=== PATIENT | female | born 1945 | race Two or more races ===

== ENCOUNTER 2017-01-28 21:34 | Inpatient (IN) | payer MEDICARE, BC ==
[~2017-01-28] VITALS: Ht 157.5 cm; Wt 64.6 kg
[2017-01-28 22:38] LABS: Basophils # (auto) 0 uL; Basophils % (auto) 0.3 % (0.0-2.0); CONDITION Y; Eosinophils # (auto) 0.1 uL; Eosinophils % (auto) 0.9 % (0.0-7.0); Hemoglobin 12.3 g/dL (12.2-16.2); Lymphocytes # (auto) 1.7 uL; Lymphocytes % (auto) 13.3 % (10.0-50.0); Mean Corpuscular Hgb Conc. 34.2 g/dL (32.0-36.0); Mean Corpuscular Volume 87.8 fL (80.0-100.0); Mean Platelet Volume 7.4 fL (7.4-10.4); Monocytes # (auto) 0.5 uL; Monocytes % (auto) 3.4 % (0.0-12.0); Neutrophils # (auto) 10.7 uL; Neutrophils % (auto) 82.1 % (37.0-80.0); Platelet Count (auto) 388 10^3/uL (140-450); Red Cell Distribution Width 15.1 % (11.6-16.0); White Blood Cell 13.1 10^3/uL (4.4-10.8)
[2017-01-28 22:52] LABS: Albumin 3.5 g/dL (3.4-5.0); Calcium 8.1 mg/dL (8.5-10.1); Potassium 3.3 mmol/L (3.5-5.1)
[2017-01-28 22:57] LABS: Bilirubin, Total 0.3 mg/dL (0.2-1.0)
[2017-01-28 23:41] LABS: BUN/Creatinine Ratio 16.6
[2017-01-29] MEDS ORDERED: ONDANSETRON HCL 4 MG/2 ML VIAL IV ONE (01:45)
[2017-01-29] MEDS ORDERED: HYDROmorphone HCL 2 MG/ML VL IV ONE (01:45)
[2017-01-29] MEDS: SODIUM CHLORIDE 0.9% 1,000 ML IV SCH ×2 (02:33→19:30)
[2017-01-29] MEDS ORDERED: DEXTROSE (50%) 50ML SYRG IV PRN (02:45)
[2017-01-29] MEDS ORDERED: POTASSIUM CHL 20 Meq TABLET PO ONE (02:45)
[2017-01-29] MEDS ORDERED: MORPHINE SULF INJ 2 MG/ML SYRINGE 1ML IV PRN (02:45)
[2017-01-29] MEDS ORDERED: DOCUSATE SOD 100 MG CAP PO PRN (02:45)
[2017-01-29] MEDS: ACCU-CHEK COMFORT CURVE STRIP VI SCH ×4 (06:00→23:35)
[2017-01-29] MEDS: InsuLIN REG 1unit/0.01ml Soln (100units/ml) SC SCH ×4 (06:00→23:37)
[2017-01-29] MEDS ORDERED: MORPHINE SULFATE 4 MG/ML SYRG ONE (08:27)
[2017-01-29] MEDS: MORPHINE SULFATE 4 MG/ML SYRG IV PRN ×4 (08:40→22:41)
[2017-01-29] MEDS: ONDANSETRON HCL 4 MG/2 ML VIAL IV PRN ×3 (08:40→18:32)
[2017-01-29] MEDS: amLODIPine BESYLATE 5 MG TAB PO SCH (10:23)
[2017-01-29] MEDS: METOPROLOL TARTRATE 50 MG TAB PO SCH ×2 (10:23→22:33)
[2017-01-29] MEDS: GEMFIBROZIL 600 MG TAB PO SCH ×2 (10:23→22:32)
[2017-01-29] MEDS: FAMOTIDINE 20 MG TAB PO SCH ×2 (10:24→22:33)
[2017-01-29] MEDS: ENOXAPARIN SOD 40 MG/0.4 ML SYRINGE SC SCH (10:24)
[2017-01-29] MEDS ORDERED: THIAMINE INJ 100 MG, MULTIPLE VITAMIN 10 ML, FOLIC ACID 1 MG, MAGNESIUM SULF SDV 50% 8 ... IV SCH ×5 (12:15)
[2017-01-29] MEDS ORDERED: ALUM & MAG HYDROX-SIMETH LIQ(MAALOX) 30 ML PO PRN (12:15)
[2017-01-29] MEDS ORDERED: chlordiazePOXIDE HCL 25 MG CAP PO PRN (12:15)
[2017-01-29] MEDS ORDERED: cloNIDine HCL 0.1 MG TAB PO PRN (12:15)
[2017-01-29 13:45] LABS: INR 0.94 (0.9-1.15); Prothrombin Time 10.2 sec (9.37-12.3)
[2017-01-29 20:41] LABS: Urine Bilirubin Negative (Negative); Urine Blood 1+ /uL (Negative); Urine Color Yellow (Yellow); Urine Glucose Normal (Normal); Urine Ketone 1+ (Negative); Urine Mucus FEW (None Seen); Urine Nitrite Negative (Negative); Urine RBC 22 /hpf (0 - 4); Urine Squamous Epithelial Cell FEW /hpf (<5); Urine Urobilinogen Normal (Negative)
[2017-01-29 22:30] VITALS: BP 156/82
[2017-01-29] MEDS ORDERED: GLIP2.5T28 PO (23:27)
[2017-01-29] MEDS ORDERED: METF-370 PO (23:27)
[2017-01-29] MEDS ORDERED: AML5T PO (23:27)
[2017-01-29] MEDS ORDERED: LISI-275 PO (23:27)
[2017-01-29] MEDS ORDERED: METO-169 PO (23:27)
[2017-01-29] MEDS: TEMAZEPAM 15 MG CAP PO PRN (23:37)
[2017-01-30] MEDS: MORPHINE SULFATE 4 MG/ML SYRG IV PRN ×5 (03:32→21:08)
[2017-01-30 04:30] VITALS: BP 145/67
[2017-01-30] MEDS: ACCU-CHEK COMFORT CURVE STRIP VI SCH ×3 (06:02→17:58)
[2017-01-30] MEDS: InsuLIN REG 1unit/0.01ml Soln (100units/ml) SC SCH ×3 (06:03→17:59)
[2017-01-30 06:15] LABS: Basophils # (auto) 0 uL; Basophils % (auto) 0.3 % (0.0-2.0); CONDITION Y; Eosinophils # (auto) 0 uL; Eosinophils % (auto) 0.6 % (0.0-7.0); Hematocrit 34.1 % (36.0-46.0); Hemoglobin 11.8 g/dL (12.2-16.2); Lymphocytes # (auto) 1.3 uL; Lymphocytes % (auto) 15.5 % (10.0-50.0); Mean Corpuscular Hemoglobin 30.4 pg (28.0-32.0); Mean Corpuscular Hgb Conc. 34.7 g/dL (32.0-36.0); Mean Corpuscular Volume 87.7 fL (80.0-100.0); Mean Platelet Volume 7.3 fL (7.4-10.4); Monocytes # (auto) 0.8 uL; Monocytes % (auto) 9.9 % (0.0-12.0); Neutrophils # (auto) 6.2 uL; Neutrophils % (auto) 73.7 % (37.0-80.0); Platelet Count (auto) 316 10^3/uL (140-450); Red Cell Distribution Width 14.8 % (11.6-16.0); White Blood Cell 8.4 10^3/uL (4.4-10.8)
[2017-01-30 06:46] LABS: Albumin 3.1 g/dL (3.4-5.0); BUN/Creatinine Ratio 15.6; Calcium 8.2 mg/dL (8.5-10.1); Potassium 4.1 mmol/L (3.5-5.1)
[2017-01-30 06:57] LABS: Bilirubin, Total 0.8 mg/dL (0.2-1.0); Total Protein 6.8 g/dL (6.4-8.2)
[2017-01-30 09:00] VITALS: BP 144/85
[2017-01-30] MEDS: FAMOTIDINE 20 MG TAB PO SCH ×2 (10:00→22:10)
[2017-01-30] MEDS: GEMFIBROZIL 600 MG TAB PO SCH ×2 (10:33→22:10)
[2017-01-30] MEDS: METOPROLOL TARTRATE 50 MG TAB PO SCH ×2 (10:34→22:10)
[2017-01-30] MEDS: amLODIPine BESYLATE 5 MG TAB PO SCH (10:35)
[2017-01-30] MEDS: ENOXAPARIN SOD 40 MG/0.4 ML SYRINGE SC SCH (10:37)
[2017-01-30] MEDS: ACETAMINOPHEN 325 MG TAB PO PRN (10:38)
[2017-01-30] MEDS: SODIUM CHLORIDE 0.9% 1,000 ML IV SCH (12:20)
[2017-01-30 13:00] VITALS: BP 159/68
[2017-01-30 16:40] VITALS: BP 139/66
[2017-01-30 21:53] VITALS: BP 150/76
[2017-01-31] MEDS: InsuLIN REG 1unit/0.01ml Soln (100units/ml) SC SCH ×4 (00:14→18:00)
[2017-01-31] MEDS: ACCU-CHEK COMFORT CURVE STRIP VI SCH ×4 (00:14→18:00)
[2017-01-31] MEDS: ACETAMINOPHEN 325 MG TAB PO PRN (00:15)
[2017-01-31] MEDS: MORPHINE SULFATE 4 MG/ML SYRG IV PRN ×3 (01:24→22:02)
[2017-01-31 05:00] VITALS: BP 127/74
[2017-01-31] MEDS: SODIUM CHLORIDE 0.9% 1,000 ML IV SCH ×2 (05:49→21:13)
[2017-01-31 07:08] LABS: Basophils # (auto) 0 uL; Basophils % (auto) 0.1 % (0.0-2.0); Eosinophils # (auto) 0.1 uL; Eosinophils % (auto) 1.1 % (0.0-7.0); Hematocrit 32.3 % (36.0-46.0); Lymphocytes # (auto) 1.4 uL; Lymphocytes % (auto) 16.9 % (10.0-50.0); Mean Corpuscular Hemoglobin 30.1 pg (28.0-32.0); Mean Corpuscular Hgb Conc. 34.2 g/dL (32.0-36.0); Mean Platelet Volume 7.8 fL (7.4-10.4); Monocytes # (auto) 0.7 uL; Monocytes % (auto) 8.7 % (0.0-12.0); Neutrophils % (auto) 73.2 % (37.0-80.0); Platelet Count (auto) 231 10^3/uL (140-450); Red Cell Distribution Width 13.1 % (11.6-16.0); White Blood Cell 8.2 10^3/uL (4.4-10.8)
[2017-01-31 07:17] LABS: BUN/Creatinine Ratio 20.8; Calcium 8.5 mg/dL (8.5-10.1); Potassium 3.7 mmol/L (3.5-5.1)
[2017-01-31 09:00] VITALS: BP 135/69
[2017-01-31] MEDS: METOPROLOL TARTRATE 50 MG TAB PO SCH ×2 (09:04→22:02)
[2017-01-31] MEDS: FAMOTIDINE 20 MG TAB PO SCH ×2 (10:00→22:04)
[2017-01-31] MEDS: GEMFIBROZIL 600 MG TAB PO SCH ×2 (10:00→22:03)
[2017-01-31] MEDS: ENOXAPARIN SOD 40 MG/0.4 ML SYRINGE SC SCH (10:00)
[2017-01-31] MEDS: amLODIPine BESYLATE 5 MG TAB PO SCH (10:00)
[2017-01-31] MEDS ORDERED: CLINDAMYCIN 600MG IV 50 ML IV ONE (10:07)
[2017-01-31] MEDS ORDERED: fentaNYL CITRATE 100 MCG/2 ML VL ONE (10:20)
[2017-01-31] MEDS ORDERED: MEPERIDINE HCL (50 MG/ML) 1 ML VIAL ONE (10:21)
[2017-01-31] MEDS ORDERED: MIDAZOLAM HCL 1MG/1ML-2 ML VIAL ONE (10:21)
[2017-01-31] MEDS ORDERED: ETOMIDATE (2MG/ML) 20ML VIAL IV ONE (10:26)
[2017-01-31] MEDS ORDERED: PROPOFOL 10 MG/ML 20 ML IV ONE (10:54)
[2017-01-31] MEDS ORDERED: DEXAMETHASONE SOD PHOS 10MG/1ML VIAL INJ ONE (10:54)
[2017-01-31] MEDS ORDERED: ePHEDrine SULFATE 50 MG/ML AMP IV PRN (11:00)
[2017-01-31] MEDS ORDERED: ACCU-CHEK COMFORT CURVE STRIP VI ONE (11:00)
[2017-01-31] MEDS ORDERED: ONDANSETRON HCL 4 MG/2 ML VIAL IV ONE (11:00)
[2017-01-31] MEDS ORDERED: MORPHINE SULF INJ 2 MG/ML SYRINGE 1ML IV PRN (11:00)
[2017-01-31] MEDS ORDERED: MIDAZOLAM HCL 1MG/1ML-2 ML VIAL IV PRN (11:00)
[2017-01-31] MEDS ORDERED: LABETALOL HCL 5 MG/ML 4ML SYRINGE IV PRN (11:00)
[2017-01-31] MEDS ORDERED: HYDROmorphone HCL 2 MG/ML VL IV PRN (11:00)
[2017-01-31] MEDS ORDERED: KETOROLAC TROMETH 30 MG/ML 1ML VIAL IV ONE (11:00)
[2017-01-31] MEDS ORDERED: SUCCINYLCHOLINE CHLORIDE 20 MG/ML 10ML VIAL IV ONE (11:12)
[2017-01-31] MEDS ORDERED: GLIP-115 PO (16:16)
[2017-01-31] MEDS ORDERED: LISI40TA PO (16:16)
[2017-01-31] MEDS ORDERED: METF-370 PO (16:16)
[2017-01-31] MEDS ORDERED: METO-159 PO (16:16)
[2017-01-31] MEDS ORDERED: GEMF600T3 PO (16:16)
[2017-01-31 17:13] VITALS: BP 151/69
[2017-01-31] MEDS ORDERED: MULTIPLE VITAMIN TAB PO ONE (20:00)
[2017-01-31] MEDS ORDERED: THIAMINE HCL 100 MG TAB PO ONE (20:00)
[2017-01-31] MEDS ORDERED: FOLIC ACID 1 MG TAB PO ONE (20:00)
[2017-01-31 22:00] VITALS: BP 150/81
[2017-02-01] MEDS: ACCU-CHEK COMFORT CURVE STRIP VI SCH ×5 (00:36→23:27)
[2017-02-01] MEDS: InsuLIN REG 1unit/0.01ml Soln (100units/ml) SC SCH ×5 (00:37→23:27)
[2017-02-01] MEDS: ACETAMINOPHEN 325 MG TAB PO PRN (00:38)
[2017-02-01] MEDS: MORPHINE SULFATE 4 MG/ML SYRG IV PRN ×2 (03:28→11:20)
[2017-02-01 05:00] VITALS: BP 157/75
[2017-02-01 06:15] LABS: Basophils # (auto) 0 uL; CONDITION Y; Eosinophils # (auto) 0 uL; Hematocrit 29.1 % (36.0-46.0); Hemoglobin 10.1 g/dL (12.2-16.2); Lymphocytes # (auto) 0.9 uL; Lymphocytes % (auto) 9.8 % (10.0-50.0); Mean Corpuscular Hemoglobin 30.4 pg (28.0-32.0); Mean Corpuscular Hgb Conc. 34.7 g/dL (32.0-36.0); Mean Corpuscular Volume 87.6 fL (80.0-100.0); Mean Platelet Volume 7.9 fL (7.4-10.4); Monocytes # (auto) 0.9 uL; Monocytes % (auto) 9.8 % (0.0-12.0); Neutrophils # (auto) 7.3 uL; Neutrophils % (auto) 80.4 % (37.0-80.0); Platelet Count (auto) 295 10^3/uL (140-450); Red Cell Distribution Width 14.3 % (11.6-16.0); White Blood Cell 9.1 10^3/uL (4.4-10.8)
[2017-02-01 06:31] LABS: BUN/Creatinine Ratio 19.6; Calcium 8.5 mg/dL (8.5-10.1); Magnesium 2.1 mg/dL (1.6-2.6); Phosphorus 2.1 mg/dL (2.5-4.90); Potassium 3.7 mmol/L (3.5-5.1)
[2017-02-01 09:34] VITALS: BP 144/69
[2017-02-01] MEDS: FOLIC ACID 1 MG TAB PO SCH (09:38)
[2017-02-01] MEDS: ENOXAPARIN SOD 40 MG/0.4 ML SYRINGE SC SCH (09:38)
[2017-02-01] MEDS: GEMFIBROZIL 600 MG TAB PO SCH ×2 (09:38→21:41)
[2017-02-01] MEDS: THIAMINE HCL 100 MG TAB PO SCH (09:39)
[2017-02-01] MEDS: MULTIPLE VITAMIN TAB PO SCH (09:40)
[2017-02-01] MEDS: METOPROLOL TARTRATE 50 MG TAB PO SCH ×2 (09:40→21:42)
[2017-02-01] MEDS: FAMOTIDINE 20 MG TAB PO SCH ×2 (09:40→21:42)
[2017-02-01] MEDS: amLODIPine BESYLATE 5 MG TAB PO SCH (09:40)
[2017-02-01] MEDS ORDERED: MORPHINE SULF INJ 2 MG/ML SYRINGE 1ML IV ONE (11:45)
[2017-02-01 12:58] VITALS: BP 144/72
[2017-02-01 17:00] VITALS: BP 151/84
[2017-02-01] MEDS: SODIUM CHLORIDE 0.9% 1,000 ML IV SCH (17:04)
[2017-02-01 22:00] VITALS: BP 150/85
[2017-02-02] MEDS: TEMAZEPAM 15 MG CAP PO PRN (01:12)
[2017-02-02] MEDS: MORPHINE SULFATE 4 MG/ML SYRG IV PRN ×2 (04:38→10:09)
[2017-02-02 05:00] VITALS: BP 136/83
[2017-02-02] MEDS: ACCU-CHEK COMFORT CURVE STRIP VI SCH ×3 (05:41→17:44)
[2017-02-02] MEDS: InsuLIN REG 1unit/0.01ml Soln (100units/ml) SC SCH ×3 (05:42→17:44)
[2017-02-02] MEDS: SODIUM CHLORIDE 0.9% 1,000 ML IV SCH (05:43)
[2017-02-02 07:12] LABS: Basophils # (auto) 0 uL; Basophils % (auto) 0.1 % (0.0-2.0); CONDITION Y; Eosinophils # (auto) 0.1 uL; Eosinophils % (auto) 1.5 % (0.0-7.0); Hematocrit 30.3 % (36.0-46.0); Hemoglobin 10.6 g/dL (12.2-16.2); Lymphocytes % (auto) 17.6 % (10.0-50.0); Mean Corpuscular Hemoglobin 30.5 pg (28.0-32.0); Mean Corpuscular Hgb Conc. 34.9 g/dL (32.0-36.0); Mean Corpuscular Volume 87.4 fL (80.0-100.0); Mean Platelet Volume 7.7 fL (7.4-10.4); Monocytes # (auto) 0.7 uL; Monocytes % (auto) 11.5 % (0.0-12.0); Neutrophils # (auto) 4.1 uL; Neutrophils % (auto) 69.3 % (37.0-80.0); Platelet Count (auto) 313 10^3/uL (140-450); Red Cell Distribution Width 14.4 % (11.6-16.0); White Blood Cell 5.9 10^3/uL (4.4-10.8)
[2017-02-02 07:51] LABS: BUN/Creatinine Ratio 31.8; Calcium 8.3 mg/dL (8.5-10.1); Phosphorus 2.8 mg/dL (2.5-4.90); Potassium 3.3 mmol/L (3.5-5.1)
[2017-02-02 08:50] VITALS: BP 142/79
[2017-02-02] MEDS: MULTIPLE VITAMIN TAB PO SCH (09:43)
[2017-02-02] MEDS: FOLIC ACID 1 MG TAB PO SCH (09:43)
[2017-02-02] MEDS: ENOXAPARIN SOD 40 MG/0.4 ML SYRINGE SC SCH (09:43)
[2017-02-02] MEDS: THIAMINE HCL 100 MG TAB PO SCH (09:45)
[2017-02-02] MEDS: GEMFIBROZIL 600 MG TAB PO SCH (09:45)
[2017-02-02] MEDS: METOPROLOL TARTRATE 50 MG TAB PO SCH (09:48)
[2017-02-02] MEDS: amLODIPine BESYLATE 5 MG TAB PO SCH (09:48)
[2017-02-02] MEDS: FAMOTIDINE 20 MG TAB PO SCH (09:49)
[2017-02-02] MEDS ORDERED: NITR-48 PO (14:49)
[2017-02-02] MEDS ORDERED: HYDR-4663 PO (14:49)
[2017-02-02] MEDS ORDERED: POTASSIUM CHL 20 Meq TABLET PO ONE (15:00)
== END 2017-02-02 18:50 | DRG 480 ==
LOC: EDBD 21:34 → ER 21:38 → OVERFLOW 21:39 → CENTRAL 01-29 21:55 → EAST 02-02 00:05
PROVIDERS: ADMIT Nurse Practitioner; ATTEND Nurse Practitioner Acute Care
PROC: 0QS636Z Reposition Right Upper Femur with Intramedullary Internal Fixation Device, Percutaneous Approach (ICD-10-PCS; principal; 2017-01-31 10:26)
DX: S72.141A Displaced intertrochanteric fracture of right femur, initial encounter for closed fracture (principal); G93.40 Encephalopathy, unspecified; N39.0 Urinary tract infection, site not specified; I10 Essential (primary) hypertension; E87.6 Hypokalemia; E86.0 Dehydration; F10.129 Alcohol abuse with intoxication, unspecified; E11.65 Type 2 diabetes mellitus with hyperglycemia; W01.0XXA Fall on same level from slipping, tripping and stumbling without subsequent striking against object, initial encounter; Y93.01 Activity, walking, marching and hiking; E78.5 Hyperlipidemia, unspecified; B96.20 Unspecified Escherichia coli [E. coli] as the cause of diseases classified elsewhere; I73.9 Peripheral vascular disease, unspecified; Y90.9 Presence of alcohol in blood, level not specified; Z88.5 Allergy status to narcotic agent; Z88.0 Allergy status to penicillin; Z82.49 Family history of ischemic heart disease and other diseases of the circulatory system; Y92.090 Kitchen in other non-institutional residence as the place of occurrence of the external cause; Y99.8 Other external cause status
CPT/HCPCS: 36415; 70450; 71010; 73502; 76000; 80048; 80053; 80320; 81001; 82962; 83036; 83735; 84100; 85025; 85610; 87086; 87088; 87186; 93005; 96365; 96367; 96374; 96375; A4565; C1713; J0330; J1100; J1815; J2250; J2405; J2704; J3490

== ENCOUNTER → 2020-08-13 | Outpatient (CLI) | payer MEDICARE, OTHER ==
[~2020-08-13] MED LIST: AML5T PO; GEMF600T7 PO; GLIP5TAB12 PO; HYDR-4833 PO; LISI40TA11 PO; METF-370 PO; METO-159 PO; NITR-87 PO
[2020-08-13 13:27] LABS: Calcium 8.4 mg/dL (8.5-10.1); Potassium 4.4 mmol/L (3.5-5.1)
[2020-08-13 13:31] LABS: Albumin 3.4 g/dL (3.4-5.0); Bilirubin, Total 0.3 mg/dL (0.2-1.0); CRP High Sensitivity 0.26 mg/dL (< 0.3); Total Protein 7.4 g/dL (6.4-8.2); Uric Acid 7.5 mg/dL (2.6-6.0)
== END | disposition home or self-care (01) ==
LOC: LAB 11:49
PROVIDERS: ATTEND Podiatrist
DX: M10.071 Idiopathic gout, right ankle and foot (principal)
CPT/HCPCS: 36415; 80053; 84550; 86141

== ENCOUNTER → 2020-09-02 | Outpatient (CLI) | payer MEDICARE, OTHER | END | disposition home or self-care (01) | LOC: LAB 14:20 | PROVIDERS: ATTEND Podiatrist | DX: M10.072 Idiopathic gout, left ankle and foot (principal) | CPT/HCPCS: 36415; 84550 ==

== ENCOUNTER → 2020-10-23 | Outpatient (CLI) | payer MEDICARE, OTHER ==
[~2020-10-23] MED LIST changes: +GEMF-19 PO; -GEMF600T7 PO
== END | disposition home or self-care (01) ==
LOC: LAB 10:01
PROVIDERS: ATTEND Podiatrist
DX: M10.9 Gout, unspecified (principal)
CPT/HCPCS: 36415

== ENCOUNTER → 2023-04-11 | Outpatient (CLI) | payer MEDICARE, OTHER ==
[~2023-04-11] MED LIST changes: -GEMF-19 PO; +GEMF-66 PO; -LISI40TA11 PO; +LISI40TA16 PO
== END | disposition home or self-care (01) ==
LOC: LAB 10:58
PROVIDERS: ATTEND Orthopaedic Surgery Adult Reconstructive Orthopaedic Surgery
DX: E11.42 Type 2 diabetes mellitus with diabetic polyneuropathy (principal); M17.0 Bilateral primary osteoarthritis of knee
CPT/HCPCS: 36415; 83036